=== PATIENT | male | born 1970 | race Caucasian/White ===

== ENCOUNTER 2016-05-01 19:55 | Emergency (ER) | payer BC ==
[~2016-05-01] VITALS: Ht 180.3 cm; Wt 106.0 kg
[2016-05-01 19:59] VITALS: TEMP 37.1; Ht 180.3 cm; Wt 106.0 kg
[2016-05-01] MEDS ORDERED: ONDANSETRON INJ 2 MG/ML 2 ML VIAL IV STA (20:03)
[2016-05-01] MEDS ORDERED: SODIUM CHLORIDE 0.9% 1000ML 1,000 ML IV STA (20:03)
[2016-05-01] MEDS: MoRPHine SULFATE 10 MG/ML CARP/VIAL IV PRN ×4 (20:11→22:14)
[2016-05-01] MEDS ORDERED: IBUP-103 PO (20:18)
[2016-05-01 20:35] LABS: BASO % 0.2 %; BASO ABS # 0.02 K/uL (0-0.2); COMPLETE YES; HEMATOCRIT 44.9 % (42-52); IG% 0.2 %; LYMPH % 11.1 %; LYMPH ABS # 1.18 K/uL (1.2-3.4); MEAN CORPUSCULAR HEMOGLOBIN 32.1 pg (25-34); MEAN CORPUSCULAR HGB CONC 35.6 g/dl (32-36); MEAN PLATELET VOLUME 9.7 fL (7.4-10.4); MONO % 8.9 %; NEUT % 78.6 %; PLATELET COUNT 144 K/uL (130-400); RED BLOOD COUNT 4.99 M/uL (4.7-6.1); WHITE BLOOD COUNT 10.66 K/uL (4.8-10.8)
--- NOTE | 2016-05-01 20:45 | DIAGNOSTIC IMAGING REPORT ---
RIGHT FEMUR 2 VIEWS ROUTINE CLINICAL HISTORY: Right femur pain status post trauma COMPARISON: None. DISCUSSION: There is a transverse fracture of the femur at the junction of the proximal and middle one third. There is 2 cm of foreshortening at the fracture site. The distal fragment is medially displaced x 16 mm. The distal fragment is posterior displaced by one full shaft width. There is 17 degrees of vertex anterior angulation at the fracture site. IMPRESSION: Displaced angulated transverse fracture of the femoral shaft 12 cm inferior to the intertrochanteric line Electronically signed by: Carlos Saldivar M.D. 05/01/2016 8:43 PM Dictated Date/Time: 05/01/2016 8:42 PM
[2016-05-01 20:46] LABS: INR 1.1 (0.9-1.1); PROTHROMBIN TIME (PATIENT) 12.1 SECONDS (9.0-12.0)
[2016-05-01 20:49] LABS: ALT/SGPT 49 U/L (12-78); BLOOD UREA NITROGEN 20 mg/dl (7-18); BUN/CREATININE RATIO 17.7 (10-20); CALCIUM 8.6 mg/dl (8.5-10.1); CARBON DIOXIDE 26 mmol/L (21-32); CHLORIDE 105 mmol/L (98-107); GLUCOSE 85 mg/dl (70-99); POTASSIUM 3.9 mmol/L (3.5-5.1); SODIUM 138 mmol/L (136-145)
--- NOTE | 2016-05-01 20:51 | DIAGNOSTIC IMAGING REPORT ---
CHEST ONE VIEW PORTABLE CLINICAL HISTORY: Preop chest. Femoral fracture. COMPARISON STUDY: No previous studies for comparison. FINDINGS: The cardiac and mediastinal contours are normal. There is no evidence of focal pulmonary consolidation. There is no evidence of failure. No pleural effusions are visualized.[ There is a left clavicular fracture. IMPRESSION: No active disease in the chest. Electronically signed by: Carlos Saldivar M.D. 05/01/2016 8:50 PM Dictated Date/Time: 05/01/2016 8:50 PM
[2016-05-01 20:53] LABS: URINE APPEARANCE CLEAR (CLEAR); URINE BILIRUBIN NEG (NEG); URINE COLOR YELLOW; URINE NITRITE NEG (NEG); URINE SPECIFIC GRAVITY 1.021 (1.000-1.030); UROBILINOGEN NEG (NEG)
[2016-05-01 20:54] LABS: ALKALINE PHOSPHATASE 73 U/L (45-117); AST/SGOT 51 U/L (15-37)
[2016-05-01 21:04] LABS: MANUAL MICROSCOPIC REQUIRED? NO; REVIEW REQ? NO
[2016-05-01 22:15] VITALS: BP 149/78; PULSE 89; O2SAT 94
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
== END 2016-05-01 22:46 | disposition short-term general hospital (02) ==
LOC: C.EDC 19:56
DX: S72.321A Displaced transverse fracture of shaft of right femur, initial encounter for closed fracture (principal); X50.9XXA Other and unspecified overexertion or strenuous movements or postures, initial encounter; Y93.55 Activity, bike riding; Y99.8 Other external cause status; Y92.39 Other specified sports and athletic area as the place of occurrence of the external cause; Z98.890 Other specified postprocedural states